=== PATIENT | female | born 1990 | race American Indian/Alaskan Native ===

== ENCOUNTER 2021-04-06 19:32 | Emergency (ER) | payer SELFPAY ==
[2021-04-06 20:39] VITALS: BP 105/68
[2021-04-06] MEDS ORDERED: ACETAMINOPHEN 500 MG TAB PO ONE (20:50)
[2021-04-06] MEDS ORDERED: IBUPROFEN 600 MG TAB PO ONE (20:50)
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
== END 2021-04-07 01:00 | disposition home or self-care (01) ==
LOC: ED 19:32
DX: S86.912A Strain of unspecified muscle(s) and tendon(s) at lower leg level, left leg, initial encounter (principal); S20.213A Contusion of bilateral front wall of thorax, initial encounter; Z79.899 Other long term (current) drug therapy; V89.2XXA Person injured in unspecified motor-vehicle accident, traffic, initial encounter; Y93.89 Activity, other specified; Y92.488 Other paved roadways as the place of occurrence of the external cause; Y99.8 Other external cause status
CPT/HCPCS: 71046; 99283